=== PATIENT | female | born 1975 | race African-American/Black ===

== ENCOUNTER → 2017-04-20 | Outpatient (CLI) | payer OTHER ==
[~2017-04-20] MED LIST: DIOVAN 80 MG TA80 M1 PO; HYDROCHLOROTH12.5 M2 PO; IRON325 PO; PRAVACHOL40 M1 PO; PRILOSEC 20 MG20 MG PO; ZANTAC 150MG T150 MG PO
== END ==
LOC: M.RAD 14:12
DX: Z12.31 Encounter for screening mammogram for malignant neoplasm of breast (principal)

== ENCOUNTER 2017-05-13 10:57 | Emergency (ER) | payer OTHER ==
[~2017-05-13] VITALS: Ht 165.1 cm; Wt 117.9 kg
[2017-05-13] MEDS ORDERED: DIOVAN 80 MG TA80 M1 PO (11:07)
[2017-05-13] MEDS ORDERED: PRAVACHOL40 M1 PO (11:07)
[2017-05-13] MEDS ORDERED: HYDROCHLOROTH12.5 M2 PO (11:07)
[2017-05-13] MEDS ORDERED: PRILOSEC 20 MG20 MG PO (11:08)
[2017-05-13] MEDS ORDERED: IRON325 PO (11:08)
[2017-05-13] MEDS ORDERED: ZANTAC 150MG T150 MG PO (11:08)
[2017-05-13 11:53] LABS: HEMOGLOBIN 12.9 gm/dL (12.0-15.0); MCH 27.5 pg (26.0-34.0); MCHC 33.8 g/dL (28.0-37.0); MCV 81.3 fL (80.0-100.0); MPV 7.7 fl. (7.2-11.1); RBC 4.68 mil/uL (4.20-5.00); RDW-CV 13.9 % (10.5-14.5); WBC 7.4 thou/uL (4.0-11.0)
[2017-05-13 12:01] LABS: ANION GAP 6 mmol/L (7-16); BUN 14 mg/dL (7-18); CALCIUM 9.1 mg/dL (8.5-10.1); CHLORIDE 103 mmol/L (98-107); CO2 30 mmol/L (21-32); CREATININE 0.6 mg/dL (0.6-1.3); GLUCOSE 123 mg/dL (70-99); POTASSIUM 3.2 mmol/L (3.5-5.1); SODIUM 139 mmol/L (136-145)
[2017-05-13 12:13] LABS: ALBUMIN 3.4 g/dL (3.4-5.0); ALKALINE PHOSPHATASE 70 U/L (46-116); NT-PRO BRAIN NAT PEPTIDE 19 pg/mL (<300); SGOT 13 U/L (15-37); SGPT 20 U/L (30-65); TOTAL BILIRUBIN 0.4 mg/dL (<0.1-1.0); TOTAL PROTEIN 7.4 g/dL (6.4-8.2); TROPONIN-I LEVEL <0.06 ng/mL (<0.06)
[2017-05-13 12:49] VITALS: BP 142/76
--- NOTE | 2017-05-14 13:52 | EKG ---
[place] [address] ELECTROCARDIOGRAM REPORT Name: SAIDA MONZON Room: [facility]#: [id number] Admission: 05/13/17 Attend Phys: Discharge: 05/13/17 Date of : 75 Report #: [id number] THIS REPORT FOR: //name// [facility] ED Test Date: 2017-05-13 Test Time: 11:08:08 Pat Name: SAIDA MONZON Department: Room: Gender: F President [employer]: HANK : 1975 Requested By: Zackary Robles Order Number: [id number] MD: Ashu Mcdonald Measurements Intervals [place] Rate: 85 P: 48 NM: 171 QRS: 66 QRSD: 96 T: 24 QT: 384 QTc: 457 Interpretive Statements Sinus rhythm Inferior Q waves noted No previous ECG available for comparison Electronically Signed On 05-14-2017 13:51:56 [employer]YSIOTHER[employer] PRACTICE MANAGER by Ashu Mcdonald [email or web address] <ELECTRONICALLY SIGNED> By: Ashu Mcdonald MD, [facility] 05/14/17 1351 [id number] Ashu Mcdonald MD, FACC /EPI
== END 2017-05-13 12:50 | disposition home or self-care (01) ==
LOC: M.ERS 10:57
PROVIDERS: Physician Assistant
DX: R42 Dizziness and giddiness (principal); I10 Essential (primary) hypertension; E78.00 Pure hypercholesterolemia, unspecified

== ENCOUNTER → 2018-10-18 | Outpatient (CLI) | payer OTHER | LOC: M.RAD 09:31 | DX: Z12.31 Encounter for screening mammogram for malignant neoplasm of breast (principal) ==